=== PATIENT | male | born 1935 | race Hispanic/Latino ===

== ENCOUNTER 2022-05-12 09:34 | Inpatient (IN) | payer MEDICARE, OTHER ==
[~2022-05-12] VITALS: Ht 149.9 cm; Wt 44.0 kg
[2022-05-12 10:25] LABS: BASOPHILS % (AUTO) 0.1 % (0.0-5.0); HEMATOCRIT 34.4 % (42-54); LYMPHOCYTES % (AUTO) 4.8 % (21.0-51.0); MEAN CORPUSCULAR HGB CONC 30.8 g/dL (32.0-36.0); MEAN CORPUSCULAR VOLUME 94.2 fL (79-99); NEUTROPHILS % (AUTO) 88.8 % (40.0-77.0); PLATELET COUNT (AUTO) 186 K/uL (130-400); RED BLOOD CELL COUNT(AUTO) 3.65 MIL/uL (4.50-6.20); RED CELL DISTRIBUTION WIDTH 15.9 % (11.0-15.5); WHITE BLOOD COUNT (AUTO) 7.5 K/uL (4.8-10.8)
[2022-05-12 10:40] LABS: CREATININE 0.9 mg/dL (0.5-1.5); POTASSIUM 5.1 mmol/L (3.5-5.1)
[2022-05-12 10:44] LABS: INR 1.05 (0.85-1.15); PROTHROMBIN TIME 11.4 SEC (9.6-11.6)
[2022-05-12 10:45] LABS: ALBUMIN 2.9 g/dL (3.5-5.0); TOTAL PROTEIN, SERUM 7.8 g/dL (6.0-8.3)
[2022-05-12 10:46] LABS: PARTIAL THROMBOPLASTIN TIME 26.8 SEC (26.3-35.5)
[2022-05-12 10:47] LABS: APPEARANCE,URINE CLEAR (CLEAR); BILIRUBIN,URINE SMALL (NEGATIVE); COLOR,URINE YELLOW (YELLOW); GLUCOSE, URINE (UA) NEGATIVE (NEGATIVE); KETONES,URINE 5 mg/dL (NEGATIVE); LEUKOCYTE ESTERASE ,URINE NEGATIVE (NEGATIVE); NITRATE,URINE NEGATIVE (NEGATIVE); OCCULT BLOOD,URINE NEGATIVE (NEGATIVE); PH,URINE 5.5 (5.0-8.0); PROTEIN,URINE 100 mg/dL (NEGATIVE); UROBILINOGEN,URINE 0.2 mg/dL (0.2-1.0)
[2022-05-12 10:54] LABS: BACTERIA,URINE Rare /HPF (None Seen); RBC,URINE 0-1 /HPF (0-1); SQUAMOUS EPITHELIAL CELL,UR Rare /HPF (0-2); WBC,URINE 0-1 /HPF (0-1)
[2022-05-12] MEDS ORDERED: ACET325T51 PO (14:30)
[2022-05-12] MEDS ORDERED: BUDE0.5A3 IH (14:31)
[2022-05-12] MEDS ORDERED: FLUC200T12 PO (14:32)
[2022-05-12] MEDS ORDERED: IPRA0.2S54 IH (14:32)
[2022-05-12] MEDS ORDERED: LACT10SO9 PO (14:34)
[2022-05-12] MEDS ORDERED: MELA3TAB41 PO (14:34)
[2022-05-12] MEDS ORDERED: PARO-37 PO (14:39)
[2022-05-12] MEDS ORDERED: TAMS-1 PO (14:46)
[2022-05-12] MEDS ORDERED: HEPARIN 25,000 UNITS/250ML D5W 250 ML IV SCH (20:00)
[2022-05-12] MEDS ORDERED: CLOPIDOGREL 300MG TAB PO ONE (20:00)
[2022-05-12] MEDS ORDERED: LACTATED RINGERS 1000ML 1,000 ML IV SCH (20:00)
[2022-05-12] MEDS ORDERED: LACTULOSE 20 GM/30 ML UDCUP PO PRN (20:00)
[2022-05-12] MEDS ORDERED: ACETAMINOPHEN 325 MG TAB PO PRN ×2 (20:00)
[2022-05-12] MEDS ORDERED: GUAIFENESIN-DM 200/20 MG 10 ML PO PRN (20:00)
[2022-05-12] MEDS ORDERED: ONDANSETRON 4MG INJ IV PRN (20:00)
[2022-05-12] MEDS ORDERED: HYDRALAZINE 20MG/ML VIAL IV PRN (21:00)
[2022-05-12] MEDS ORDERED: LABETALOL 20MG SYG IV PRN (21:00)
[2022-05-12] MEDS: MELATONIN 3 MG PO SCH (21:00)
[2022-05-12] MEDS: FAMOTIDINE 20MG VIAL IV SCH (21:14)
[2022-05-12] MEDS: ATORVASTATIN 40 MG TABLET PO SCH (21:14)
[2022-05-12] MEDS: ASPIRIN 81MG CHEW TAB PO SCH (21:14)
[2022-05-12] MEDS ORDERED: HEPARIN 5,000 UNIT VIAL ONE (22:17)
[2022-05-12] MEDS: TAMSULOSIN HCL 0.4 MG CAP.ER.24H PO SCH (22:30)
[2022-05-13 06:32] LABS: BASOPHILS % (AUTO) 0.3 % (0.0-5.0); LYMPHOCYTES % (AUTO) 13.9 % (21.0-51.0); MEAN CORPUSCULAR HEMOGLOBIN 28.4 pg (27.0-33.0); MEAN CORPUSCULAR HGB CONC 30.3 g/dL (32.0-36.0); MEAN CORPUSCULAR VOLUME 93.8 fL (79-99); MONOCYTES % (AUTO) 10.9 % (3.0-13.0); NEUTROPHILS % (AUTO) 74.6 % (40.0-77.0); PLATELET COUNT (AUTO) 187 K/uL (130-400); RED BLOOD CELL COUNT(AUTO) 3.52 MIL/uL (4.50-6.20); RED CELL DISTRIBUTION WIDTH 15.9 % (11.0-15.5)
[2022-05-13 08:16] LABS: ALBUMIN 2.7 g/dL (3.5-5.0); CREATININE 0.8 mg/dL (0.5-1.5); POTASSIUM 5.2 mmol/L (3.5-5.1); TOTAL PROTEIN, SERUM 6.9 g/dL (6.0-8.3)
[2022-05-13] MEDS: ASPIRIN 81MG CHEW TAB PO SCH (09:00)
[2022-05-13] MEDS ORDERED: CLOPIDOGREL 75MG TAB PO SCH (09:00)
[2022-05-13] MEDS: FAMOTIDINE 20MG VIAL IV SCH (09:45)
[2022-05-13 11:45] VITALS: BP 123/67
[2022-05-13 15:30] LABS: INR 1.05 (0.85-1.15); PROTHROMBIN TIME 11.4 SEC (9.6-11.6)
[2022-05-13] MEDS ORDERED: FUROSEMIDE 20MG VIAL IV ONE (15:30)
[2022-05-13 15:31] LABS: PARTIAL THROMBOPLASTIN TIME 43.9 SEC (26.3-35.5)
[2022-05-13 15:47] LABS: ABG HCO3 34.7 mmol/L (21.0-28.0); ABG OXYGEN SATURATION 94.8 % (95.0-99.0); ABG PCO2 62 mmHg (35-48)
[2022-05-13 16:00] VITALS: BP 134/62
[2022-05-13] MEDS ORDERED: LEVOFLOXACIN 500 MG/D5W 100 ML 100 ML IV ONE (16:30)
[2022-05-13] MEDS: IPRATROPIUM 0.5 MG/2.5 ML INH IH SCH ×2 (18:49→23:40)
[2022-05-13] MEDS ORDERED: BUDESONIDE 0.5 MG/2 ML INH IH ONE (18:54)
[2022-05-13] MEDS: BUDESONIDE 0.5 MG/2 ML INH IH SCH (18:55)
[2022-05-13 20:00] VITALS: BP 141/55
[2022-05-13] MEDS: MELATONIN 3 MG PO SCH (21:00)
[2022-05-13] MEDS ORDERED: DRONABINOL 2.5 MG CAP PO ONE (21:00)
[2022-05-13] MEDS: TAMSULOSIN HCL 0.4 MG CAP.ER.24H PO SCH (21:19)
[2022-05-13] MEDS: ATORVASTATIN 40 MG TABLET PO SCH (21:19)
[2022-05-14] VITALS (7 sets, daily range): BP systolic 99–128; BP diastolic 48–68
[2022-05-14 05:34] LABS: BASOPHILS % (AUTO) 0.5 % (0.0-5.0); HEMATOCRIT 28.2 % (42-54); LYMPHOCYTES % (AUTO) 13.6 % (21.0-51.0); MEAN CORPUSCULAR HGB CONC 31.2 g/dL (32.0-36.0); MEAN CORPUSCULAR VOLUME 93.1 fL (79-99); MONOCYTES % (AUTO) 11.5 % (3.0-13.0); NEUTROPHILS % (AUTO) 74.1 % (40.0-77.0); PLATELET COUNT (AUTO) 161 K/uL (130-400); RED BLOOD CELL COUNT(AUTO) 3.03 MIL/uL (4.50-6.20); RED CELL DISTRIBUTION WIDTH 15.7 % (11.0-15.5); WHITE BLOOD COUNT (AUTO) 6.6 K/uL (4.8-10.8)
[2022-05-14 05:46] LABS: CREATININE 0.9 mg/dL (0.5-1.5); POTASSIUM 3.7 mmol/L (3.5-5.1)
[2022-05-14 05:51] LABS: B-TYPE NATRIURETIC PEPTIDE 800 pg/mL (0-100)
[2022-05-14] MEDS: BUDESONIDE 0.5 MG/2 ML INH IH SCH ×2 (06:48→17:11)
[2022-05-14] MEDS: IPRATROPIUM 0.5 MG/2.5 ML INH IH SCH ×3 (06:48→17:11)
[2022-05-14] MEDS ORDERED: SODIUM CHLORIDE 7% INHALATION 4 ML VIAL.NEB IH ONE ×3 (07:55→17:29)
[2022-05-14] MEDS ORDERED: MAGNESIUM CITRATE 296 ML SOLUTION PO ONE (08:00)
[2022-05-14] MEDS ORDERED: FUROSEMIDE 20 MG TABLET PO SCH (09:00)
[2022-05-14] MEDS: POLYETHYLENE GLYCOL 3350 17 GM POWD.PACK PO SCH (09:36)
[2022-05-14] MEDS: APIXABAN 2.5 MG TABLET PO SCH ×2 (09:37→20:26)
[2022-05-14] MEDS: FAMOTIDINE 20MG VIAL IV SCH (09:37)
[2022-05-14] MEDS: DRONABINOL 2.5 MG CAP PO SCH (09:37)
[2022-05-14] MEDS ORDERED: LEVOFLOXACIN 250 MG/D5W 50ML 50 ML IVPB SCH (13:30)
[2022-05-14 14:08] LABS: HEMATOCRIT 30.3 % (42-54)
[2022-05-14] MEDS: ATORVASTATIN 40 MG TABLET PO SCH (20:27)
[2022-05-14] MEDS: MELATONIN 3 MG PO SCH (20:27)
[2022-05-14] MEDS: TAMSULOSIN HCL 0.4 MG CAP.ER.24H PO SCH (20:27)
[2022-05-15] MEDS: IPRATROPIUM 0.5 MG/2.5 ML INH IH SCH ×3 (01:21→11:03)
[2022-05-15 04:08] VITALS: BP 108/66
[2022-05-15 05:28] LABS: BASOPHILS % (AUTO) 0.3 % (0.0-5.0); HEMATOCRIT 28.5 % (42-54); LYMPHOCYTES % (AUTO) 17.4 % (21.0-51.0); MEAN CORPUSCULAR HGB CONC 31.2 g/dL (32.0-36.0); MEAN CORPUSCULAR VOLUME 92.8 fL (79-99); MONOCYTES % (AUTO) 11.1 % (3.0-13.0); NEUTROPHILS % (AUTO) 70.9 % (40.0-77.0); PLATELET COUNT (AUTO) 154 K/uL (130-400); RED BLOOD CELL COUNT(AUTO) 3.07 MIL/uL (4.50-6.20); RED CELL DISTRIBUTION WIDTH 15.8 % (11.0-15.5); WHITE BLOOD COUNT (AUTO) 6.2 K/uL (4.8-10.8)
[2022-05-15 05:38] LABS: CREATININE 0.8 mg/dL (0.5-1.5); POTASSIUM 4.1 mmol/L (3.5-5.1)
[2022-05-15] MEDS: DRONABINOL 2.5 MG CAP PO SCH (06:08)
[2022-05-15] MEDS: BUDESONIDE 0.5 MG/2 ML INH IH SCH (06:44)
[2022-05-15 07:17] VITALS: BP 87/39
[2022-05-15] MEDS: FAMOTIDINE 20MG VIAL IV SCH (09:37)
[2022-05-15] MEDS: POLYETHYLENE GLYCOL 3350 17 GM POWD.PACK PO SCH (09:37)
[2022-05-15] MEDS: APIXABAN 2.5 MG TABLET PO SCH (09:37)
[2022-05-15] MEDS ORDERED: PREDNISONE 20 MG TABLET PO SCH (09:46)
[2022-05-15] MEDS ORDERED: LEVOFLOXACIN 500 MG/D5W 100 ML 100 ML IV SCH (10:00)
[2022-05-15 11:04] LABS: POTASSIUM 4.2 mmol/L (3.5-5.1)
[2022-05-15 12:18] VITALS: BP 137/73
== END 2022-05-15 16:45 | DRG 70 ==
LOC: EDH 09:34 → EDHIP 19:32 → 4DH 05-13 10:30
PROVIDERS: ADMIT Internal Medicine; ATTEND Internal Medicine
DX: G93.41 Metabolic encephalopathy (principal); I50.33 Acute on chronic diastolic (congestive) heart failure; J96.21 Acute and chronic respiratory failure with hypoxia; J96.22 Acute and chronic respiratory failure with hypercapnia; R64 Cachexia; J44.1 Chronic obstructive pulmonary disease with (acute) exacerbation; M48.56XA Collapsed vertebra, not elsewhere classified, lumbar region, initial encounter for fracture; N39.0 Urinary tract infection, site not specified; Z68.1 Body mass index [BMI] 19.9 or less, adult; I48.92 Unspecified atrial flutter; I11.0 Hypertensive heart disease with heart failure; I48.91 Unspecified atrial fibrillation; Z66 Do not resuscitate; N40.0 Benign prostatic hyperplasia without lower urinary tract symptoms; J84.10 Pulmonary fibrosis, unspecified; I27.20 Pulmonary hypertension, unspecified; D64.9 Anemia, unspecified; F32.A Depression, unspecified; F41.9 Anxiety disorder, unspecified; K59.00 Constipation, unspecified; F03.90 Unspecified dementia, unspecified severity, without behavioral disturbance, psychotic disturbance, mood disturbance, and anxiety; Z99.81 Dependence on supplemental oxygen; Z79.899 Other long term (current) drug therapy; Z20.822 Contact with and (suspected) exposure to COVID-19
CPT/HCPCS: 36415; 36600; 70450; 70551; 71045; 71250; 74018; 74176; 80048; 80053; 81001; 82803; 82948; 83605; 83880; 84484; 85014; 85018; 85025; 85610; 85730; 87040; 87635; 92610; 93005; 94640; 94664; 94667; 94668; 97039; G0378; J1644; J1940; J1956; J3490; J7120; Q0167